=== PATIENT | male | born 1975 | race African-American/Black ===

== ENCOUNTER → 2017-04-08 | Day surgery (SDC) | payer OTHER ==
[~2017-04-08] VITALS: Ht 182.9 cm; Wt 113.4 kg
--- NOTE | 2017-04-08 13:11 | Operative Report ---
Operative/Inv Procedure Report Surgery Date: 04/08/17 Name of Procedure: Decompression right shoulder including a glenohumeral debridement, a distal clavicle excision and an arthroscopic acromioplasty Pre-Operative Diagnosis: Impingement right shoulder rule out rotator cuff tear Post-Operative Diagnosis: Impingement syndrome right shoulder ,small partial rotator cuff tear, acromioclavicular arthritis, synovitis Gleno humeral joint Estimated Blood Loss: scant Surgeon/Front End Ui Developer: Katie WILLIAMSON,Keanu Crabtree/Cruz Davis physician's junior assistant manager Anesthesia: general endotracheal tube, block Complications: None Condition: Stable 1 returned to the recovery room Operative Indication: This 41-year-old male has been treated for pain in his right shoulder for several months. He has an impingement syndrome and an MRI was suggestive of a small partial tear of his rotator cuff. He has failed conservative therapy which included injections anti-inflammatories and physical therapy. He is now admitted for an arthroscopic exam of the shoulder, decompression and possible rotator cuff repair Operative/Procedure Note Note: After satisfactory scalene block had been administered in the preop area patient is taken to the operating room and a general anesthetic was administered. He received preoperative antibiotics. He was positioned in a beach chair position and all bony prominences were well-padded. The right shoulder and upper extremity were then prepped and draped in usual sterile fashion. A second pair of skilled hands was required for the successful completion of this procedure. Cruz Davis a certified physician's junior assistant manager assisted in positioning instrumentation and visualization. His presence was required for the successful outcome of this procedure. This decreased operative time in the associated comorbidities associated with that. A posterior portal was made in usual fashion and the joint was entered without difficulty. The Manuel humeral joint appeared clean. Patient had inflammatory tissue at the anterior aspect of the joint that was impinging in the Manuel humeral joint. A second portal was made just lateral to the coracoid and a motorized shaver was used to debride the inflammatory synovitis. An ablator was used to cauterize any small bleeding points. The superior labrum was inspected and found to be stable. The biceps tendon was pulled into the joint and the patient had "lipstick tendinitis". However there was no fraying of the biceps tendon. Our attention was then turned to the rotator cuff. The articular surface appeared pristine upon visualization and probing. The arthroscope was then removed from the joint and repositioned into the subacromial space. The patient had significant bursal hypertrophy and this was removed using an arthroscopic ablator. The undersurface of the acromion was then visualized. The patient a large anterior acromial spur. A motorized shaver was then used to remove the acromial spur. Our tension was then turned to the acromioclavicular joint. The patient had narrowing of the joint and an inferior clavicular spur. This was approached through an anterior portal and 10 mm of distal clavicle were resected. We once again inspected the bursal surface of the rotator cuff. A motorized shaver was placed through the lateral portal and a bursectomy was performed. The shoulder was then put through a range of motion and probed. The patient had a small punctate lesion in the supraspinatus which was not full-thickness and not in need of repair. The instruments were then withdrawn. The portals were closed with 4-0 nylon and dry sterile dressings applied over the incision. Blood loss was scant he was returned to the recovery room in excellent condition
== END ==
LOC: STS 02:13
DX: M25.811 Other specified joint disorders, right shoulder (principal); M19.011 Primary osteoarthritis, right shoulder; I10 Essential (primary) hypertension; M25.511 Pain in right shoulder
CPT/HCPCS: C9399; J0171; J0690; J2250; J2795